=== PATIENT | female | born 1940 | race Caucasian/White ===

== ENCOUNTER 2022-03-22 14:52 | Emergency (ER) | payer MEDICARE, BC ==
[~2022-03-22] VITALS: Ht 177.8 cm; Wt 97.7 kg
[2022-03-22 14:56] VITALS: TEMP 99.5
[2022-03-22] MEDS ORDERED: NORCO 325 MG-51 TAB PO ×3 (16:00→16:47)
[2022-03-22] MEDS ORDERED: WHCH (16:16)
[2022-03-22 16:49] VITALS: BP 160/86; PULSE 88
== END 2022-03-22 16:52 | disposition home or self-care (01) ==
LOC: COL.ER 14:52
DX: M25.461 Effusion, right knee (principal); C56.9 Malignant neoplasm of unspecified ovary; Z96.651 Presence of right artificial knee joint; Z87.81 Personal history of (healed) traumatic fracture; Z91.040 Latex allergy status